=== PATIENT | female | born 1970 | race African-American/Black ===

== ENCOUNTER 2017-05-30 19:55 | Emergency (ER) | payer MEDICAID, OTHER ==
[~2017-05-30] VITALS: Ht 167.6 cm; Wt 88.5 kg
[2017-05-31 00:43] VITALS: BP 143/92
[2017-05-31] MEDS ORDERED: BACLOFEN 10 MG TAB PO ONE (01:45)
[2017-05-31] MEDS ORDERED: IBUPROFEN 600 MG TAB PO ONE (01:45)
== END 2017-05-31 02:00 | disposition home or self-care (01) ==
LOC: EDBD 19:55 → ER 19:55
DX: S80.01XA Contusion of right knee, initial encounter (principal); S80.02XA Contusion of left knee, initial encounter; M79.1 Myalgia; V43.52XA Car driver injured in collision with other type car in traffic accident, initial encounter; Y93.89 Activity, other specified; Y92.89 Other specified places as the place of occurrence of the external cause; Y99.8 Other external cause status
CPT/HCPCS: 73562

== ENCOUNTER 2019-09-19 00:37 | Emergency (ER) | payer MEDICAID, OTHER ==
[~2019-09-19] VITALS: Ht 170.2 cm; Wt 79.4 kg
[2019-09-19 00:57] VITALS: BP 149/93
== END 2019-09-19 02:00 | disposition home or self-care (01) ==
LOC: ER 00:41
DX: S61.011A Laceration without foreign body of right thumb without damage to nail, initial encounter (principal); W26.0XXA Contact with knife, initial encounter; Y93.89 Activity, other specified; Y92.89 Other specified places as the place of occurrence of the external cause; Y99.8 Other external cause status
CPT/HCPCS: 12001